=== PATIENT | male | born 1960 | race Caucasian/White ===

== ENCOUNTER 2016-10-22 20:28 | Emergency (ER) | payer MEDICAID ==
[~2016-10-22] VITALS: Ht 177.8 cm; Wt 72.0 kg
[~2016-10-22 20:28] MED LIST: AMOX-367 PO
[2016-10-22 21:25] VITALS: BP 115/77
[2016-10-22 22:01] LABS: BLOOD UREA NITROGEN 17 mg/dL (7-18)
[2016-10-22 22:03] LABS: DAU SCREEN DISCLAIMER
[2016-10-22 22:04] LABS: ACETAMINOPHEN < 2 mcg/mL (10-30)
== END 2016-10-22 23:54 | disposition home or self-care (01) ==
LOC: ED 22:21 → UNDOADMIN 22:35 → EDIP 22:35 → 3NE 23:42 → ED 23:54 → UNDODISIN 10-23 00:15
DX: F32.9 Major depressive disorder, single episode, unspecified (principal); F15.10 Other stimulant abuse, uncomplicated
CPT/HCPCS: 36415; 80048; 80307; 80329; 82040; 85025; 99284; 99285; G0480

== ENCOUNTER 2016-11-21 00:42 | Emergency (ER) | payer MEDICAID ==
[~2016-11-21] VITALS: Ht 177.8 cm; Wt 63.5 kg
[2016-11-21 00:44] VITALS: BP 135/81
== END 2016-11-21 01:42 | disposition home or self-care (01) ==
LOC: ED 01:00
DX: S00.01XA Abrasion of scalp, initial encounter (principal); L72.3 Sebaceous cyst; N43.3 Hydrocele, unspecified; F10.20 Alcohol dependence, uncomplicated; Z90.89 Acquired absence of other organs; X58.XXXA Exposure to other specified factors, initial encounter; Y93.89 Activity, other specified; Y92.89 Other specified places as the place of occurrence of the external cause; Y99.8 Other external cause status
CPT/HCPCS: 99281

== ENCOUNTER 2017-09-16 21:31 | Inpatient (IN) | payer MEDICAID ==
[~2017-09-16] VITALS: Ht 177.8 cm; Wt 64.7 kg
[2017-09-16] MEDS ORDERED: HYDROcodone/APAP 5/325 TABLET PO ONE (22:00)
[2017-09-16] MEDS ORDERED: SODIUM CHLORIDE FLUSH 10ML SYR IVF ONE (22:00)
[2017-09-16] MEDS ORDERED: ONDANSETRON ODT 4 MG PO ONE (22:00)
[2017-09-16] MEDS ORDERED: ONDANSETRON ODT 4 MG ONE (22:04)
[2017-09-16] MEDS ORDERED: HYDROcodone/APAP 5/325 TABLET ONE (22:04)
[2017-09-16 22:27] LABS: MEAN CORPUSCULAR HEMOGLOBIN 32.6 pg (27.5-34.5); MEAN CORPUSCULAR HGB CONC 34.1 g/dL (33.2-36.2); MEAN CORPUSCULAR VOLUME 95.4 fL (81-97); MEAN PLATELET VOLUME 8.5 fL (7.4-10.4); PLATELET COUNT 292 x10^3/uL (130-400); RED BLOOD COUNT 4.54 x10^6/uL (4.38-5.82); RED CELL DISTRIBUTION WIDTH 13.8 % (9.4-14.8)
[2017-09-16] MEDS ORDERED: AMPICILLIN/SULBACTAM 3 GM in SODIUM CHLORIDE 0.9% 100 ML IV ONE (22:30)
[2017-09-16 22:36] LABS: ALBUMIN 3.5 g/dL (3.4-5.0); ANION GAP 6 mmol/L (5-15); CALCIUM 9.1 mg/dL (8.5-10.1); CHLORIDE 107 mmol/L (98-107); CREATININE 1.14 mg/dL (0.7-1.3)
[2017-09-16 22:45] LABS: MD YES
[2017-09-16 22:46] LABS: <RBC MORPHOLOGY> NORMAL; LYMPH#(MANUAL) 2.04 x10^3/uL (1-3.4); LYMPHS% (MANUAL) 12 % (22-44); MONOS#(MANUAL) 0.68 x10^3/uL (0.3-2.7); MONOS% (MANUAL) 4 % (2-9); SEG#(MANUAL) 14.28 x10^3/uL (1.8-6.8); SEGS% (MANUAL) 84 % (42-75)
[2017-09-16 22:47] LABS: <PLATELET ESTIMATE> ADEQUATE; LARGE PLATELETS 1+
[2017-09-17] MEDS ORDERED: ENALAPRILAT 1.25 MG/ML, 2ML IVPush PRN (00:30)
[2017-09-17] MEDS ORDERED: ACETAMINOPHEN 325 MG TABLET PO PRN (00:30)
[2017-09-17] MEDS ORDERED: VANCOMYCIN PER PHARMACY MC PRN (00:30)
[2017-09-17] MEDS ORDERED: BISACODYL 10 MG SUPP PR PRN (00:30)
[2017-09-17] MEDS ORDERED: PHARMACOKINETIC CONSULTATION MC ONE (00:30)
[2017-09-17] MEDS ORDERED: hydrALAzine 20 MG/ML, 1ML IVPush PRN (00:30)
[2017-09-17] MEDS ORDERED: ONDANSETRON 2MG/ML, 2ML IVPush PRN (00:30)
[2017-09-17] MEDS ORDERED: VANCOMYCIN PMX 1GM/200ML 200 ML IV ONE (00:30)
[2017-09-17] MEDS ORDERED: PHARMACOKINETIC MONITORING MC PRN (00:30)
[2017-09-17] MEDS ORDERED: POLYETHYLENE GLYCOL 17 GM PACKET PO PRN (00:30)
[2017-09-17] MEDS ORDERED: morphine SULFATE 10 MG/ML, 1ML IVPush PRN (00:30)
[2017-09-17 01:04] LABS: HEMOGLOBIN A1C 5.8 % (4.2-6.3)
[2017-09-17 01:06] LABS: FREE T4 (FREE THYROXINE) 1.11 ng/dL (0.76-1.46); THYROID STIMULATING HORMONE 1.61 mIU/L (0.358-3.740)
[2017-09-17 01:09] VITALS: BP 116/72
[2017-09-17] MEDS: ENOXAPARIN 40 MG/0.4 ML SQ SCH (03:04)
[2017-09-17] MEDS: NICOTINE 14MG/24 HR PATCH.TD24 TD SCH (03:04)
[2017-09-17] MEDS: SODIUM CHLORIDE 0.9% 1,000 ML IV SCH ×2 (03:05→14:27)
[2017-09-17] MEDS: PIPERACILLIN/TAZO/PMX 3.375GM 50 ML IV SCH ×4 (03:05→20:47)
[2017-09-17 03:24] VITALS: BP 131/70
[2017-09-17] MEDS: VANCOMYCIN 1,200 MG in SODIUM CHLORIDE 0.9% 250 ML IV SCH ×2 (04:25→17:59)
[2017-09-17 07:54] VITALS: BP 126/56
[2017-09-17] MEDS: SENNA/DOCUSATE TABLET PO SCH (08:22)
[2017-09-17 10:19] LABS: MICROSCOPIC NOT IND
[2017-09-17 10:21] LABS: CULTURE INDICATED? NO
[2017-09-17] MEDS ORDERED: PNEUMOCOCCAL 23 VACCINE IM-VACC ONE (11:00)
[2017-09-17] MEDS ORDERED: FLU VACC QS2017-18 (36MOS+) UP/PF 0.5 ML IM-VACC ONE (11:00)
[2017-09-17 13:28] VITALS: BP 129/88
[2017-09-17 20:45] VITALS: BP 108/51
[2017-09-18 01:51] VITALS: BP 120/61
[2017-09-18] MEDS: NICOTINE 14MG/24 HR PATCH.TD24 TD SCH (03:10)
[2017-09-18] MEDS: PIPERACILLIN/TAZO/PMX 3.375GM 50 ML IV SCH ×4 (03:10→20:29)
[2017-09-18] MEDS: ENOXAPARIN 40 MG/0.4 ML SQ SCH (03:10)
[2017-09-18 04:56] LABS: BASOPHILS # (AUTO) 0.05 x10^3/uL (0-0.1); BASOPHILS % (AUTO) 0 % (0-1); EOSINOPHILS # (AUTO) 0.29 x10^3/uL (0-0.4); EOSINOPHILS % (AUTO) 2 % (1-7); LYMPHOCYTES # (AUTO) 2.49 x10^3/uL (1-3.4); LYMPHOCYTES % (AUTO) 18 % (22-44); MD NO; MEAN CORPUSCULAR HGB CONC 33.3 g/dL (33.2-36.2); MEAN PLATELET VOLUME 8.4 fL (7.4-10.4); MONOCYTES # (AUTO) 1.35 x10^3/uL (0.2-0.8); MONOCYTES % (AUTO) 10 % (2-9); NEUTROPHILS # (AUTO) 9.51 x10^3/uL (1.8-6.8); NEUTROPHILS % (AUTO) 70 % (42-75); PLATELET COUNT 234 x10^3/uL (130-400); RED BLOOD COUNT 4.27 x10^6/uL (4.38-5.82); RED CELL DISTRIBUTION WIDTH 14.2 % (9.4-14.8)
[2017-09-18 05:12] LABS: ALBUMIN 2.6 g/dL (3.4-5.0); ANION GAP 6 mmol/L (5-15); CHLORIDE 105 mmol/L (98-107)
[2017-09-18 05:17] LABS: ALANINE AMINOTRANSFERASE 16 U/L (12-78); ALKALINE PHOSPHATASE 72 U/L (45-117); BILIRUBIN,TOTAL 0.4 mg/dL (0.2-1.0); CHOLESTEROL, TOTAL 102 mg/dL (140-239); CREATININE 0.97 mg/dL (0.7-1.3); HDL CHOL % 51 % (26-37); HDL CHOLESTEROL (DIRECT) 52 mg/dL (40-60); LDL CHOLESTEROL,CALCULATED 37 mg/dL (54-169); LDL/HDL RATIO 0.7 (0.5-3.0); TOTAL PROTEIN 6.2 g/dL (6.4-8.2); TRIGLYCERIDES 63 mg/dL (50-200); VLDL CHOLESTEROL 13 mg/dL (0-25)
[2017-09-18 06:58] VITALS: BP 112/70
[2017-09-18] MEDS ORDERED: GADOBUTROL 10 MMOL/10 ML PFS ONE (08:12)
[2017-09-18] MEDS ORDERED: GADOBUTROL 7.5 MMOL/7.5 ML PFS ONE (08:13)
[2017-09-18] MEDS: SENNA/DOCUSATE TABLET PO SCH (09:04)
[2017-09-18] MEDS: VANCOMYCIN 1,200 MG in SODIUM CHLORIDE 0.9% 250 ML IV SCH (13:41)
[2017-09-18 14:37] VITALS: BP 120/67
[2017-09-18 19:55] VITALS: BP 110/55
[2017-09-19 02:02] VITALS: BP 103/57
[2017-09-19] MEDS: PIPERACILLIN/TAZO/PMX 3.375GM 50 ML IV SCH ×4 (02:58→21:08)
[2017-09-19] MEDS: ENOXAPARIN 40 MG/0.4 ML SQ SCH ×2 (02:58→12:19)
[2017-09-19] MEDS: NICOTINE 14MG/24 HR PATCH.TD24 TD SCH (02:58)
[2017-09-19 05:14] LABS: BASOPHILS # (AUTO) 0.06 x10^3/uL (0-0.1); BASOPHILS % (AUTO) 1 % (0-1); EOSINOPHILS # (AUTO) 0.26 x10^3/uL (0-0.4); EOSINOPHILS % (AUTO) 3 % (1-7); LYMPHOCYTES # (AUTO) 2.06 x10^3/uL (1-3.4); LYMPHOCYTES % (AUTO) 20 % (22-44); MD NO; MEAN CORPUSCULAR HEMOGLOBIN 32.3 pg (27.5-34.5); MEAN CORPUSCULAR HGB CONC 33.9 g/dL (33.2-36.2); MEAN CORPUSCULAR VOLUME 95.3 fL (81-97); MEAN PLATELET VOLUME 8.2 fL (7.4-10.4); MONOCYTES # (AUTO) 1.32 x10^3/uL (0.2-0.8); MONOCYTES % (AUTO) 13 % (2-9); NEUTROPHILS # (AUTO) 6.72 x10^3/uL (1.8-6.8); NEUTROPHILS % (AUTO) 65 % (42-75); PLATELET COUNT 295 x10^3/uL (130-400); RED BLOOD COUNT 4.44 x10^6/uL (4.38-5.82)
[2017-09-19 05:24] LABS: ANION GAP 7 mmol/L (5-15); CALCIUM 8.7 mg/dL (8.5-10.1); CHLORIDE 102 mmol/L (98-107)
[2017-09-19 05:25] LABS: CREATININE 1.15 mg/dL (0.7-1.3)
[2017-09-19] MEDS: VANCOMYCIN 1,200 MG in SODIUM CHLORIDE 0.9% 250 ML IV SCH (06:49)
[2017-09-19 07:30] VITALS: BP 98/55
[2017-09-19 09:39] LABS: INTERNATIONAL NORMALIZED RATIO 0.96 (0.93-1.1)
[2017-09-19] MEDS ORDERED: HYDROcodone/APAP 10/325 MG TABLET ONE (09:39)
[2017-09-19] MEDS: SENNA/DOCUSATE TABLET PO SCH (09:43)
[2017-09-19] MEDS: HYDROcodone/APAP 10/325 MG TABLET PO PRN (09:45)
[2017-09-19 12:49] VITALS: BP 105/49
[2017-09-19 19:45] VITALS: BP 96/58
[2017-09-20 01:04] VITALS: BP 107/64
[2017-09-20] MEDS: PIPERACILLIN/TAZO/PMX 3.375GM 50 ML IV SCH ×4 (03:25→22:17)
[2017-09-20 05:29] LABS: BASOPHILS # (AUTO) 0.07 x10^3/uL (0-0.1); BASOPHILS % (AUTO) 1 % (0-1); EOSINOPHILS # (AUTO) 0.39 x10^3/uL (0-0.4); EOSINOPHILS % (AUTO) 5 % (1-7); LYMPHOCYTES # (AUTO) 2.27 x10^3/uL (1-3.4); LYMPHOCYTES % (AUTO) 29 % (22-44); MD NO; MEAN CORPUSCULAR HEMOGLOBIN 32.1 pg (27.5-34.5); MEAN CORPUSCULAR HGB CONC 33.8 g/dL (33.2-36.2); MEAN CORPUSCULAR VOLUME 94.9 fL (81-97); MEAN PLATELET VOLUME 7.8 fL (7.4-10.4); MONOCYTES # (AUTO) 1.28 x10^3/uL (0.2-0.8); MONOCYTES % (AUTO) 16 % (2-9); NEUTROPHILS % (AUTO) 49 % (42-75); PLATELET COUNT 321 x10^3/uL (130-400); RED BLOOD COUNT 4.71 x10^6/uL (4.38-5.82); RED CELL DISTRIBUTION WIDTH 13.8 % (9.4-14.8)
[2017-09-20 05:39] LABS: ANION GAP 6 mmol/L (5-15); CALCIUM 8.4 mg/dL (8.5-10.1); CHLORIDE 105 mmol/L (98-107); CREATININE 1.13 mg/dL (0.7-1.3)
[2017-09-20] MEDS: VANCOMYCIN 1,200 MG in SODIUM CHLORIDE 0.9% 250 ML IV SCH (05:43)
[2017-09-20] MEDS: NICOTINE 14MG/24 HR PATCH.TD24 TD SCH (05:44)
[2017-09-20] MEDS: HYDROcodone/APAP 10/325 MG TABLET PO PRN (06:30)
[2017-09-20 08:07] VITALS: BP 96/59
[2017-09-20] MEDS: SENNA/DOCUSATE TABLET PO SCH (08:41)
[2017-09-20] MEDS: ENOXAPARIN 40 MG/0.4 ML SQ SCH (12:50)
[2017-09-20 14:10] VITALS: BP 112/57
[2017-09-20 18:58] VITALS: BP 108/56
[2017-09-21 01:32] VITALS: BP 104/67
[2017-09-21] MEDS: PIPERACILLIN/TAZO/PMX 3.375GM 50 ML IV SCH ×2 (03:08→09:53)
[2017-09-21] MEDS: VANCOMYCIN 1,200 MG in SODIUM CHLORIDE 0.9% 250 ML IV SCH (05:36)
[2017-09-21] MEDS: NICOTINE 14MG/24 HR PATCH.TD24 TD SCH (05:38)
[2017-09-21 05:50] LABS: ANION GAP 7 mmol/L (5-15); CALCIUM 9.2 mg/dL (8.5-10.1); CHLORIDE 107 mmol/L (98-107); CREATININE 1.21 mg/dL (0.7-1.3)
[2017-09-21 05:55] LABS: BASOPHILS # (AUTO) 0.05 x10^3/uL (0-0.1); BASOPHILS % (AUTO) 1 % (0-1); EOSINOPHILS # (AUTO) 0.36 x10^3/uL (0-0.4); EOSINOPHILS % (AUTO) 4 % (1-7); LYMPHOCYTES # (AUTO) 2.55 x10^3/uL (1-3.4); LYMPHOCYTES % (AUTO) 26 % (22-44); MD NO; MEAN CORPUSCULAR HEMOGLOBIN 32.1 pg (27.5-34.5); MEAN CORPUSCULAR HGB CONC 33.7 g/dL (33.2-36.2); MEAN CORPUSCULAR VOLUME 95.1 fL (81-97); MEAN PLATELET VOLUME 8.1 fL (7.4-10.4); MONOCYTES % (AUTO) 11 % (2-9); NEUTROPHILS # (AUTO) 5.84 x10^3/uL (1.8-6.8); NEUTROPHILS % (AUTO) 59 % (42-75); PLATELET COUNT 359 x10^3/uL (130-400); RED BLOOD COUNT 4.94 x10^6/uL (4.38-5.82); RED CELL DISTRIBUTION WIDTH 13.9 % (9.4-14.8)
[2017-09-21 08:42] VITALS: BP 104/59
[2017-09-21] MEDS: SENNA/DOCUSATE TABLET PO SCH (08:55)
[2017-09-21] MEDS: ENOXAPARIN 40 MG/0.4 ML SQ SCH (12:11)
[2017-09-21 14:42] VITALS: BP 102/57
[2017-09-21] MEDS ORDERED: PIPERACILLIN/TAZO 3.375 GM in SODIUM CHLORIDE 0.9% 50 ML IV SCH (15:00)
[2017-09-21] MEDS: PIPERACILLIN/TAZO 3.375 GM in DEXTROSE 5% 50 ML IV SCH ×3 (16:39→23:44)
[2017-09-21 19:30] VITALS: BP 113/57
[2017-09-22 03:26] VITALS: BP 113/68
[2017-09-22] MEDS: PIPERACILLIN/TAZO 3.375 GM in DEXTROSE 5% 50 ML IV SCH ×4 (05:29→23:32)
[2017-09-22] MEDS: VANCOMYCIN 1,200 MG in SODIUM CHLORIDE 0.9% 250 ML IV SCH (06:04)
[2017-09-22] MEDS: NICOTINE 14MG/24 HR PATCH.TD24 TD SCH (06:10)
[2017-09-22] MEDS: SENNA/DOCUSATE TABLET PO SCH (07:19)
[2017-09-22 08:30] VITALS: BP 111/59
[2017-09-22] MEDS: ENOXAPARIN 40 MG/0.4 ML SQ SCH (11:48)
[2017-09-22 13:16] VITALS: BP 129/77
[2017-09-22 20:51] VITALS: BP 116/62
[2017-09-23] MEDS: VANCOMYCIN PMX 1GM/200ML 200 ML IVPB SCH ×2 (01:37→18:31)
[2017-09-23 03:52] VITALS: BP 112/66
[2017-09-23] MEDS: NICOTINE 14MG/24 HR PATCH.TD24 TD SCH (05:38)
[2017-09-23] MEDS: PIPERACILLIN/TAZO 3.375 GM in DEXTROSE 5% 50 ML IV SCH ×4 (05:38→23:03)
[2017-09-23] MEDS: SENNA/DOCUSATE TABLET PO SCH (07:16)
[2017-09-23 08:25] VITALS: BP 104/58
[2017-09-23] MEDS: ENOXAPARIN 40 MG/0.4 ML SQ SCH (12:01)
[2017-09-23 13:50] VITALS: BP 108/63
[2017-09-23 19:05] VITALS: BP 102/65
[2017-09-23] MEDS: HYDROcodone/APAP 10/325 MG TABLET PO PRN (21:17)
[2017-09-24 02:10] VITALS: BP 110/54
[2017-09-24] MEDS: PIPERACILLIN/TAZO 3.375 GM in DEXTROSE 5% 50 ML IV SCH ×4 (04:57→22:52)
[2017-09-24] MEDS: NICOTINE 14MG/24 HR PATCH.TD24 TD SCH (04:57)
[2017-09-24] MEDS: SENNA/DOCUSATE TABLET PO SCH (07:27)
[2017-09-24 07:58] VITALS: BP 114/55
[2017-09-24] MEDS: ENOXAPARIN 40 MG/0.4 ML SQ SCH (11:40)
[2017-09-24] MEDS: HYDROcodone/APAP 10/325 MG TABLET PO PRN (11:42)
[2017-09-24] MEDS: VANCOMYCIN PMX 1GM/200ML 200 ML IVPB SCH (13:32)
[2017-09-24 13:35] VITALS: BP 118/72
[2017-09-24 19:00] VITALS: BP 119/60
[2017-09-25 02:14] VITALS: BP 116/66
[2017-09-25] MEDS: PIPERACILLIN/TAZO 3.375 GM in DEXTROSE 5% 50 ML IV SCH ×4 (04:47→23:28)
[2017-09-25] MEDS: NICOTINE 14MG/24 HR PATCH.TD24 TD SCH (04:48)
[2017-09-25] MEDS: VANCOMYCIN PMX 1GM/200ML 200 ML IVPB SCH (06:43)
[2017-09-25 07:12] VITALS: BP 100/66
[2017-09-25] MEDS: SENNA/DOCUSATE TABLET PO SCH (08:40)
[2017-09-25 09:05] LABS: BASOPHILS # (AUTO) 0.06 x10^3/uL (0-0.1); BASOPHILS % (AUTO) 1 % (0-1); EOSINOPHILS # (AUTO) 0.33 x10^3/uL (0-0.4); EOSINOPHILS % (AUTO) 3 % (1-7); LYMPHOCYTES # (AUTO) 3.53 x10^3/uL (1-3.4); LYMPHOCYTES % (AUTO) 31 % (22-44); MD NO; MEAN CORPUSCULAR HEMOGLOBIN 32.4 pg (27.5-34.5); MEAN CORPUSCULAR HGB CONC 34.3 g/dL (33.2-36.2); MEAN CORPUSCULAR VOLUME 94.3 fL (81-97); MEAN PLATELET VOLUME 7.7 fL (7.4-10.4); MONOCYTES # (AUTO) 0.96 x10^3/uL (0.2-0.8); MONOCYTES % (AUTO) 8 % (2-9); NEUTROPHILS # (AUTO) 6.65 x10^3/uL (1.8-6.8); NEUTROPHILS % (AUTO) 58 % (42-75); PLATELET COUNT 398 x10^3/uL (130-400); RED BLOOD COUNT 4.49 x10^6/uL (4.38-5.82); RED CELL DISTRIBUTION WIDTH 13.9 % (9.4-14.8)
[2017-09-25 09:16] LABS: ALBUMIN 2.8 g/dL (3.4-5.0); ANION GAP 7 mmol/L (5-15); CALCIUM 8.6 mg/dL (8.5-10.1); CHLORIDE 109 mmol/L (98-107)
[2017-09-25 09:24] LABS: ALANINE AMINOTRANSFERASE 37 U/L (12-78); ALKALINE PHOSPHATASE 72 U/L (45-117); BILIRUBIN,TOTAL 0.3 mg/dL (0.2-1.0); CREATININE 1.15 mg/dL (0.7-1.3); TOTAL PROTEIN 7.1 g/dL (6.4-8.2)
[2017-09-25 09:56] LABS: HCT (SEDRATE) 42.3 % (39.2-51.8)
[2017-09-25] MEDS ORDERED: DIPHENHYDRAMINE 25 MG CAPSULE ONE (10:36)
[2017-09-25] MEDS: DIPHENHYDRAMINE 25 MG CAPSULE PO PRN (10:59)
[2017-09-25] MEDS: ENOXAPARIN 40 MG/0.4 ML SQ SCH (12:35)
[2017-09-25 13:23] VITALS: BP 118/69
[2017-09-25 19:37] VITALS: BP 114/61
[2017-09-26] MEDS: VANCOMYCIN PMX 1GM/200ML 200 ML IVPB SCH ×2 (01:35→19:15)
[2017-09-26 01:49] VITALS: BP 113/66
[2017-09-26 05:00] LABS: BASOPHILS # (AUTO) 0.11 x10^3/uL (0-0.1); BASOPHILS % (AUTO) 1 % (0-1); EOSINOPHILS # (AUTO) 0.38 x10^3/uL (0-0.4); EOSINOPHILS % (AUTO) 4 % (1-7); LYMPHOCYTES # (AUTO) 3.98 x10^3/uL (1-3.4); LYMPHOCYTES % (AUTO) 36 % (22-44); MD NO; MEAN CORPUSCULAR HEMOGLOBIN 31.8 pg (27.5-34.5); MEAN CORPUSCULAR HGB CONC 33.6 g/dL (33.2-36.2); MEAN CORPUSCULAR VOLUME 94.5 fL (81-97); MEAN PLATELET VOLUME 7.8 fL (7.4-10.4); MONOCYTES # (AUTO) 1.33 x10^3/uL (0.2-0.8); MONOCYTES % (AUTO) 12 % (2-9); NEUTROPHILS # (AUTO) 5.13 x10^3/uL (1.8-6.8); NEUTROPHILS % (AUTO) 47 % (42-75); PLATELET COUNT 393 x10^3/uL (130-400); RED BLOOD COUNT 4.53 x10^6/uL (4.38-5.82); RED CELL DISTRIBUTION WIDTH 14.1 % (9.4-14.8)
[2017-09-26 05:16] LABS: CHLORIDE 107 mmol/L (98-107)
[2017-09-26 05:21] LABS: CALCIUM 8.9 mg/dL (8.5-10.1); CREATININE 1.06 mg/dL (0.7-1.3)
[2017-09-26 05:24] LABS: ANION GAP 6 mmol/L (5-15)
[2017-09-26] MEDS: PIPERACILLIN/TAZO 3.375 GM in DEXTROSE 5% 50 ML IV SCH ×2 (05:31→11:00)
[2017-09-26] MEDS: NICOTINE 14MG/24 HR PATCH.TD24 TD SCH (05:32)
[2017-09-26 08:19] VITALS: BP 123/67
[2017-09-26] MEDS: SENNA/DOCUSATE TABLET PO SCH (09:00)
[2017-09-26] MEDS: ENOXAPARIN 40 MG/0.4 ML SQ SCH (12:29)
[2017-09-26 12:47] VITALS: BP 129/77
[2017-09-26 19:29] VITALS: BP 117/70
[2017-09-27 02:38] VITALS: BP 104/70
[2017-09-27] MEDS: NICOTINE 14MG/24 HR PATCH.TD24 TD SCH (05:19)
[2017-09-27] MEDS ORDERED: VANCOMYCIN PMX 1GM/200ML 200 ML IVPB SCH (07:00)
[2017-09-27 07:46] VITALS: BP 115/50
[2017-09-27] MEDS: HYDROcodone/APAP 10/325 MG TABLET PO PRN (08:46)
[2017-09-27] MEDS: SENNA/DOCUSATE TABLET PO SCH (09:00)
[2017-09-27] MEDS: NICOTINE 7 MG/24 HR PATCH.TD24 TD SCH (11:00)
[2017-09-27] MEDS: LACTOBACILLUS CHEW TABLET PO SCH ×3 (11:00→21:52)
[2017-09-27] MEDS: ENOXAPARIN 40 MG/0.4 ML SQ SCH (12:36)
[2017-09-27 13:07] VITALS: BP 129/74
[2017-09-27] MEDS: CEFAZOLIN 2,000 MG in DEXTROSE 5% 50 ML IV SCH ×2 (16:13→22:55)
[2017-09-27 19:03] VITALS: BP 120/76
[2017-09-28 01:22] VITALS: BP 119/65
[2017-09-28] MEDS: LACTOBACILLUS CHEW TABLET PO SCH ×4 (05:21→19:55)
[2017-09-28] MEDS: HYDROcodone/APAP 10/325 MG TABLET PO PRN (05:21)
[2017-09-28 05:28] LABS: BASOPHILS # (AUTO) 0.15 x10^3/uL (0-0.1); BASOPHILS % (AUTO) 1 % (0-1); EOSINOPHILS # (AUTO) 0.29 x10^3/uL (0-0.4); EOSINOPHILS % (AUTO) 3 % (1-7); LYMPHOCYTES # (AUTO) 3.46 x10^3/uL (1-3.4); LYMPHOCYTES % (AUTO) 33 % (22-44); MD NO; MEAN CORPUSCULAR HEMOGLOBIN 32.5 pg (27.5-34.5); MEAN CORPUSCULAR HGB CONC 34.3 g/dL (33.2-36.2); MEAN CORPUSCULAR VOLUME 94.8 fL (81-97); MEAN PLATELET VOLUME 8.3 fL (7.4-10.4); MONOCYTES # (AUTO) 0.94 x10^3/uL (0.2-0.8); MONOCYTES % (AUTO) 9 % (2-9); NEUTROPHILS # (AUTO) 5.55 x10^3/uL (1.8-6.8); NEUTROPHILS % (AUTO) 53 % (42-75); PLATELET COUNT 385 x10^3/uL (130-400); RED BLOOD COUNT 4.83 x10^6/uL (4.38-5.82); RED CELL DISTRIBUTION WIDTH 13.5 % (9.4-14.8)
[2017-09-28 05:32] LABS: ANION GAP 5 mmol/L (5-15); CHLORIDE 108 mmol/L (98-107); CREATININE 1.21 mg/dL (0.7-1.3)
[2017-09-28] MEDS: CEFAZOLIN 2,000 MG in DEXTROSE 5% 50 ML IV SCH ×3 (06:42→23:13)
[2017-09-28 07:52] VITALS: BP 130/66
[2017-09-28] MEDS: SENNA/DOCUSATE TABLET PO SCH (09:00)
[2017-09-28] MEDS: NICOTINE 7 MG/24 HR PATCH.TD24 TD SCH (10:24)
[2017-09-28] MEDS: ENOXAPARIN 40 MG/0.4 ML SQ SCH (11:34)
[2017-09-28 12:39] VITALS: BP 144/66
[2017-09-28 19:01] VITALS: BP 111/67
[2017-09-29 02:17] VITALS: BP 111/66
[2017-09-29] MEDS: CEFAZOLIN 2,000 MG in DEXTROSE 5% 50 ML IV SCH ×3 (06:37→22:57)
[2017-09-29] MEDS: LACTOBACILLUS CHEW TABLET PO SCH ×4 (06:37→20:42)
[2017-09-29 06:46] VITALS: BP 130/79
[2017-09-29] MEDS: SENNA/DOCUSATE TABLET PO SCH (08:17)
[2017-09-29] MEDS: NICOTINE 7 MG/24 HR PATCH.TD24 TD SCH (08:42)
[2017-09-29] MEDS: ENOXAPARIN 40 MG/0.4 ML SQ SCH (12:35)
[2017-09-29 14:08] VITALS: BP 128/65
[2017-09-29 19:46] VITALS: BP 114/67
[2017-09-30 01:39] VITALS: BP 107/63
[2017-09-30] MEDS: HYDROcodone/APAP 10/325 MG TABLET PO PRN (02:51)
[2017-09-30] MEDS: LACTOBACILLUS CHEW TABLET PO SCH ×4 (06:24→21:14)
[2017-09-30] MEDS: CEFAZOLIN 2,000 MG in DEXTROSE 5% 50 ML IV SCH ×3 (06:24→23:00)
[2017-09-30 07:11] VITALS: BP 103/59
[2017-09-30] MEDS: SENNA/DOCUSATE TABLET PO SCH (09:00)
[2017-09-30] MEDS: NICOTINE 7 MG/24 HR PATCH.TD24 TD SCH (09:20)
[2017-09-30] MEDS: ENOXAPARIN 40 MG/0.4 ML SQ SCH (12:57)
[2017-09-30 14:19] VITALS: BP 110/71
[2017-09-30] MEDS ORDERED: ONDANSETRON 2MG/ML, 2ML IVPush PRN (15:21)
[2017-09-30] MEDS ORDERED: ONDANSETRON ODT 4 MG PO PRN (15:30)
[2017-09-30 19:26] VITALS: BP 121/75
[2017-10-01 03:55] VITALS: BP 111/69
[2017-10-01] MEDS: LACTOBACILLUS CHEW TABLET PO SCH ×4 (06:00→20:36)
[2017-10-01] MEDS: CEFAZOLIN 2,000 MG in DEXTROSE 5% 50 ML IV SCH ×3 (06:36→23:36)
[2017-10-01 07:24] VITALS: BP 111/72
[2017-10-01] MEDS: NICOTINE 7 MG/24 HR PATCH.TD24 TD SCH (08:49)
[2017-10-01] MEDS: SENNA/DOCUSATE TABLET PO SCH (08:49)
[2017-10-01] MEDS: ENOXAPARIN 40 MG/0.4 ML SQ SCH (11:48)
[2017-10-01 14:00] VITALS: BP 116/72
[2017-10-01 19:51] VITALS: BP 112/68
[2017-10-02 03:16] VITALS: BP 98/65
[2017-10-02 05:27] LABS: BASOPHILS % (AUTO) 1 % (0-1); EOSINOPHILS # (AUTO) 0.26 x10^3/uL (0-0.4); EOSINOPHILS % (AUTO) 3 % (1-7); LYMPHOCYTES # (AUTO) 4.07 x10^3/uL (1-3.4); LYMPHOCYTES % (AUTO) 41 % (22-44); MD NO; MEAN CORPUSCULAR HGB CONC 33.7 g/dL (33.2-36.2); MEAN PLATELET VOLUME 8.9 fL (7.4-10.4); MONOCYTES % (AUTO) 11 % (2-9); NEUTROPHILS # (AUTO) 4.42 x10^3/uL (1.8-6.8); NEUTROPHILS % (AUTO) 45 % (42-75); PLATELET COUNT 345 x10^3/uL (130-400); RED BLOOD COUNT 4.27 x10^6/uL (4.38-5.82); RED CELL DISTRIBUTION WIDTH 14.1 % (9.4-14.8)
[2017-10-02 05:33] LABS: CHLORIDE 107 mmol/L (98-107)
[2017-10-02 05:40] LABS: ANION GAP 8 mmol/L (5-15); CALCIUM 8.5 mg/dL (8.5-10.1); CREATININE 1.02 mg/dL (0.7-1.3)
[2017-10-02] MEDS: LACTOBACILLUS CHEW TABLET PO SCH ×4 (06:40→21:29)
[2017-10-02] MEDS: CEFAZOLIN 2,000 MG in DEXTROSE 5% 50 ML IV SCH ×3 (06:40→22:39)
[2017-10-02 07:20] VITALS: BP 101/66
[2017-10-02] MEDS: NICOTINE 7 MG/24 HR PATCH.TD24 TD SCH (08:33)
[2017-10-02] MEDS: SENNA/DOCUSATE TABLET PO SCH (08:33)
[2017-10-02] MEDS: ENOXAPARIN 40 MG/0.4 ML SQ SCH (11:25)
[2017-10-02 13:56] VITALS: BP 118/73
[2017-10-02 20:55] VITALS: BP 143/85
[2017-10-02] MEDS: DIPHENHYDRAMINE 25 MG CAPSULE PO PRN (22:38)
[2017-10-03 02:09] VITALS: BP 135/80
[2017-10-03] MEDS: CEFAZOLIN 2,000 MG in DEXTROSE 5% 50 ML IV SCH (06:20)
[2017-10-03] MEDS: LACTOBACILLUS CHEW TABLET PO SCH ×4 (06:25→20:08)
[2017-10-03 07:42] VITALS: BP 126/78
[2017-10-03] MEDS: NICOTINE 7 MG/24 HR PATCH.TD24 TD SCH (08:32)
[2017-10-03] MEDS: SENNA/DOCUSATE TABLET PO SCH (08:32)
[2017-10-03] MEDS: ENOXAPARIN 40 MG/0.4 ML SQ SCH (11:30)
[2017-10-03 13:10] VITALS: BP 125/73
[2017-10-03] MEDS: CEFAZOLIN 2,000 MG in DEXTROSE 5% 100 ML IV SCH ×2 (15:26→23:31)
[2017-10-03 19:49] VITALS: BP 132/77
[2017-10-04 04:40] VITALS: BP 110/63
[2017-10-04 05:20] LABS: BASOPHILS % (AUTO) 1 % (0-1); EOSINOPHILS # (AUTO) 0.28 x10^3/uL (0-0.4); EOSINOPHILS % (AUTO) 3 % (1-7); LYMPHOCYTES # (AUTO) 3.16 x10^3/uL (1-3.4); LYMPHOCYTES % (AUTO) 28 % (22-44); MD NO; MEAN CORPUSCULAR HEMOGLOBIN 31.8 pg (27.5-34.5); MEAN CORPUSCULAR HGB CONC 33.4 g/dL (33.2-36.2); MEAN CORPUSCULAR VOLUME 95.1 fL (81-97); MEAN PLATELET VOLUME 8.9 fL (7.4-10.4); MONOCYTES # (AUTO) 1.23 x10^3/uL (0.2-0.8); MONOCYTES % (AUTO) 11 % (2-9); NEUTROPHILS # (AUTO) 6.46 x10^3/uL (1.8-6.8); NEUTROPHILS % (AUTO) 58 % (42-75); PLATELET COUNT 342 x10^3/uL (130-400); RED BLOOD COUNT 4.52 x10^6/uL (4.38-5.82); RED CELL DISTRIBUTION WIDTH 14.6 % (9.4-14.8)
[2017-10-04 05:28] LABS: ALANINE AMINOTRANSFERASE 23 U/L (12-78); ALBUMIN 3.2 g/dL (3.4-5.0); ANION GAP 7 mmol/L (5-15); CALCIUM 9.3 mg/dL (8.5-10.1); CHLORIDE 108 mmol/L (98-107)
[2017-10-04 05:30] LABS: ALKALINE PHOSPHATASE 73 U/L (45-117); BILIRUBIN,TOTAL 0.2 mg/dL (0.2-1.0); TOTAL PROTEIN 7.3 g/dL (6.4-8.2)
[2017-10-04] MEDS: CEFAZOLIN 2,000 MG in DEXTROSE 5% 100 ML IV SCH ×3 (06:13→23:01)
[2017-10-04] MEDS: LACTOBACILLUS CHEW TABLET PO SCH ×4 (06:13→21:31)
[2017-10-04 06:37] VITALS: BP 122/74
[2017-10-04] MEDS: SENNA/DOCUSATE TABLET PO SCH (08:49)
[2017-10-04] MEDS: ENOXAPARIN 40 MG/0.4 ML SQ SCH (08:49)
[2017-10-04] MEDS: NICOTINE 7 MG/24 HR PATCH.TD24 TD SCH (08:49)
[2017-10-04 12:40] VITALS: BP 111/71
[2017-10-04 18:50] VITALS: BP 106/69
[2017-10-04] MEDS: DIPHENHYDRAMINE 25 MG CAPSULE PO PRN (22:59)
[2017-10-05 02:09] VITALS: BP 110/65
[2017-10-05] MEDS: LACTOBACILLUS CHEW TABLET PO SCH ×2 (04:56→11:33)
[2017-10-05] MEDS: CEFAZOLIN 2,000 MG in DEXTROSE 5% 100 ML IV SCH (06:46)
[2017-10-05 07:29] VITALS: BP 111/73
[2017-10-05] MEDS ORDERED: CEFA2SYR4 IV (07:43)
[2017-10-05] MEDS ORDERED: ACET325T14 PO (07:43)
[2017-10-05] MEDS: NICOTINE 7 MG/24 HR PATCH.TD24 TD SCH (07:48)
[2017-10-05] MEDS: SENNA/DOCUSATE TABLET PO SCH (09:00)
[2017-10-05] MEDS: ENOXAPARIN 40 MG/0.4 ML SQ SCH (11:16)
[2017-10-05] MEDS: HYDROcodone/APAP 10/325 MG TABLET PO PRN (12:24)
[2017-10-05 12:50] VITALS: BP 120/66
== END 2017-10-05 13:00 | DRG 558 ==
LOC: ED 23:31 → EDIP 09-17 00:14 → 4NOR 09-17 00:24
PROVIDERS: ADMIT Internal Medicine; ATTEND Internal Medicine
PROC: 0H9GXZZ Drainage of Left Hand Skin, External Approach (ICD-10-PCS; principal; 2017-09-19)
PROC: 02HV33Z Insertion of Infusion Device into Superior Vena Cava, Percutaneous Approach (ICD-10-PCS; 2017-10-05)
PROC: B548ZZA Ultrasonography of Superior Vena Cava, Guidance (ICD-10-PCS; 2017-10-05)
DX: M65.142 Other infective (teno)synovitis, left hand (principal); F10.20 Alcohol dependence, uncomplicated; L02.512 Cutaneous abscess of left hand; L03.114 Cellulitis of left upper limb; F15.10 Other stimulant abuse, uncomplicated; I89.1 Lymphangitis; H54.8 Legal blindness, as defined in USA; H54.61 Unqualified visual loss, right eye, normal vision left eye; Z59.0 Homelessness; Z71.6 Tobacco abuse counseling; F17.200 Nicotine dependence, unspecified, uncomplicated; Z86.14 Personal history of Methicillin resistant Staphylococcus aureus infection; Z23 Encounter for immunization
CPT/HCPCS: 36415; 36569; 76937; 77001; 80048; 80053; 80061; 80202; 81003; 82040; 83036; 83605; 83735; 84100; 84439; 84443; 85025; 85610; 85651; 86140; 87040; 87070; 87077; 87186; 87205; 90686; 90732; 99285; A9585; J0295; J0690; J1650; J2543; J3370; Q0162; C1751; J7030; J7050; Q0163

== ENCOUNTER 2018-09-01 11:57 | Emergency (ER) | payer MEDICAID ==
[~2018-09-01] VITALS: Ht 177.8 cm; Wt 65.0 kg
[~2018-09-01 11:57] MED LIST changes: +ACET325T14 PO; +CEFA2SYR4 IV
[2018-09-01] MEDS ORDERED: SODIUM CHLORIDE FLUSH 10ML SYR IVF ONE (13:30)
[2018-09-01] MEDS ORDERED: LIDOCAINE 1%-EPI 1:100K, 20ML SQ ONE (13:30)
[2018-09-01] MEDS ORDERED: LIDOCAINE 1%-EPI 1:100K, 30ML ONE (13:54)
[2018-09-01] MEDS ORDERED: IBUPROFEN 200 MG TABLET ONE (14:04)
[2018-09-01 14:08] LABS: BASOPHILS # (AUTO) 0.09 x10^3/uL (0-0.1); BASOPHILS % (AUTO) 1 % (0-1); EOSINOPHILS # (AUTO) 0.07 x10^3/uL (0-0.4); EOSINOPHILS % (AUTO) 1 % (1-7); LYMPHOCYTES # (AUTO) 1.91 x10^3/uL (1-3.4); LYMPHOCYTES % (AUTO) 13 % (22-44); MD NO; MEAN CORPUSCULAR HEMOGLOBIN 32.7 pg (27.5-34.5); MEAN CORPUSCULAR HGB CONC 33.9 g/dL (33.2-36.2); MEAN CORPUSCULAR VOLUME 96.4 fL (81-97); MONOCYTES # (AUTO) 1.19 x10^3/uL (0.2-0.8); MONOCYTES % (AUTO) 8 % (2-9); NEUTROPHILS # (AUTO) 11.17 x10^3/uL (1.8-6.8); NEUTROPHILS % (AUTO) 77 % (42-75); PLATELET COUNT 262 x10^3/uL (130-400); RED BLOOD COUNT 4.34 x10^6/uL (4.38-5.82); RED CELL DISTRIBUTION WIDTH 13.6 % (9.4-14.8)
[2018-09-01] MEDS ORDERED: IBUP-1484 PO (14:09)
[2018-09-01 14:15] LABS: ALBUMIN 3.5 g/dL (3.4-5.0); ANION GAP 5 mmol/L (5-15); CALCIUM 8.6 mg/dL (8.5-10.1); CHLORIDE 108 mmol/L (98-107); CREATININE 1.02 mg/dL (0.7-1.3)
[2018-09-01] MEDS ORDERED: KETOROLAC 30 MG/1 ML ONE (14:22)
[2018-09-01] MEDS ORDERED: ONDANSETRON ODT 4 MG ONE (14:22)
[2018-09-01] MEDS ORDERED: IBUPROFEN 600 MG TABLET PO ONE (14:30)
--- NOTE | 2018-09-01 15:50 | NUR ---
PT RESTING WITH NO COMPLAINTS. VS UPDATED AND WNL. CALL BUTTON WITHIN REACH.
[2018-09-01 16:47] VITALS: BP 138/84
--- NOTE | 2018-09-01 17:53 | NUR ---
Patient/Caregiver given discharge instructions and they have confirmed that they understand the instructions. Patient ambulatory with steady gait.
== END 2018-09-01 17:54 | disposition home or self-care (01) ==
LOC: ED 14:18
DX: M25.561 Pain in right knee (principal); L03.115 Cellulitis of right lower limb
CPT/HCPCS: 20610; 36415; 73564; 80048; 82040; 82945; 83605; 84157; 84550; 84560; 85025; 87040; 87070; 87205; 89051; 93971; 99284; J3490

== ENCOUNTER 2019-09-30 06:27 | Emergency (ER) | payer MEDICAID ==
[~2019-09-30] VITALS: Ht 177.8 cm; Wt 67.6 kg
[~2019-09-30 06:27] MED LIST changes: +IBUP-1902 PO
[2019-09-30 06:31] VITALS: BP 155/104
[2019-09-30 07:08] LABS: BASOPHILS # (AUTO) 0.05 x10^3/uL (0-0.1); BASOPHILS % (AUTO) 1 % (0-1); EOSINOPHILS # (AUTO) 0.18 x10^3/uL (0-0.4); EOSINOPHILS % (AUTO) 2 % (1-7); LYMPHOCYTES # (AUTO) 2.41 x10^3/uL (1-3.4); LYMPHOCYTES % (AUTO) 26 % (22-44); MD NO; MEAN CORPUSCULAR HEMOGLOBIN 32.5 pg (27.5-34.5); MEAN CORPUSCULAR HGB CONC 33.9 g/dL (33.2-36.2); MEAN CORPUSCULAR VOLUME 95.7 fL (81-97); MEAN PLATELET VOLUME 7.8 fL (7.4-10.4); MONOCYTES # (AUTO) 1.01 x10^3/uL (0.2-0.8); MONOCYTES % (AUTO) 11 % (2-9); NEUTROPHILS # (AUTO) 5.59 x10^3/uL (1.8-6.8); NEUTROPHILS % (AUTO) 61 % (42-75); PLATELET COUNT 299 x10^3/uL (130-400); RED BLOOD COUNT 4.38 x10^6/uL (4.38-5.82); RED CELL DISTRIBUTION WIDTH 14.3 % (9.4-14.8)
--- NOTE | 2019-09-30 07:15 | NUR ---
PT TO XR.
[2019-09-30 07:18] LABS: ALBUMIN 3.6 g/dL (3.4-5.0); ANION GAP 10 mmol/L (5-15); CALCIUM 8.9 mg/dL (8.5-10.1); CHLORIDE 114 mmol/L (98-107); CREATININE 1.15 mg/dL (0.7-1.3)
--- NOTE | 2019-09-30 07:21 | NUR ---
PT BACK FROM XR.
--- NOTE | 2019-09-30 07:57 | NUR ---
DR. BEST TO BS. AWAITING DISPO.
== END 2019-09-30 08:15 | disposition home or self-care (01) ==
LOC: ED 07:01
DX: M25.522 Pain in left elbow (principal); M25.521 Pain in right elbow
CPT/HCPCS: 36415; 80048; 82040; 85025; 99284

== ENCOUNTER 2020-11-13 06:48 | Emergency (ER) | payer MEDICAID ==
[~2020-11-13] VITALS: Ht 177.8 cm; Wt 67.0 kg
--- NOTE | 2020-11-13 07:08 | NUR ---
ERP IN ROOM
[2020-11-13 07:50] LABS: BASOPHILS % (AUTO) 1 % (0-1); EOSINOPHILS % (AUTO) 2 % (1-7); LYMPHOCYTES % (AUTO) 26 % (22-44); MEAN CORPUSCULAR HEMOGLOBIN 32.5 pg (27.5-34.5); MEAN CORPUSCULAR HGB CONC 34.5 g/dL (33.2-36.2); MEAN PLATELET VOLUME 8.6 fL (7.4-10.4); MONOCYTES % (AUTO) 14 % (2-9); NEUTROPHILS % (AUTO) 57 % (42-75); PLATELET COUNT 285 x10^3/uL (130-400); RED BLOOD COUNT 4.46 x10^6/uL (4.38-5.82); RED CELL DISTRIBUTION WIDTH 13.6 % (9.4-14.8)
[2020-11-13 07:58] LABS: ALANINE AMINOTRANSFERASE 18 U/L (12-78); ALBUMIN 3.3 g/dL (3.4-5.0); ANION GAP 5 mmol/L (5-15); CALCIUM 8.8 mg/dL (8.5-10.1); CHLORIDE 109 mmol/L (98-107); CREATININE 1.27 mg/dL (0.7-1.3); MD NO
[2020-11-13 08:00] LABS: ALKALINE PHOSPHATASE 102 U/L (45-117); BILIRUBIN,TOTAL 0.3 mg/dL (0.2-1.0); TOTAL PROTEIN 7.1 g/dL (6.4-8.2)
--- NOTE | 2020-11-13 08:37 | NUR ---
US at bedside
[2020-11-13 09:05] VITALS: BP 120/89
--- NOTE | 2020-11-13 09:07 | NUR ---
PT RESTING IN BED WATCHING TV. VSS
--- NOTE | 2020-11-13 09:21 | NUR ---
PT VERBALIZED UNDERSTANDING OF DISCHARGE INSTRUCTIONS
== END 2020-11-13 09:22 | disposition home or self-care (01) ==
LOC: ED 07:13
DX: I83.028 Varicose veins of left lower extremity with ulcer other part of lower leg (principal); R21 Rash and other nonspecific skin eruption
CPT/HCPCS: 36415; 80053; 85025; 99284